=== PATIENT | female | born 1940 | race Two or more races ===

== ENCOUNTER 2018-10-27 09:14 | Day surgery (SDC) | payer BC ==
[~2018-10-27 09:14] MED LIST: CEFAZOLIN 2 GM/50 ML (PMX) 50 ML IVPB
[2018-10-27 10:12] LABS: ADD MAN DIFF? NO
[2018-10-27 10:16] LABS: BASOPHILS % 0.2 % (0.0-2.0); EOSINOPHILS # 0.1 10^3/ul (0.0-0.5); EOSINOPHILS % 1.2 % (0.0-7.0); HEMATOCRIT 39.9 % (37.0-47.0); HEMOGLOBIN 12.8 g/dl (12.0-16.0); LYMPHOCYTES # 1.9 10^3/ul (0.8-2.9); LYMPHOCYTES % 29.4 % (15.0-51.0); MEAN CORPUSCULAR HEMOGLOBIN 28.4 pg (29.0-33.0); MEAN CORPUSCULAR HGB CONC 32.1 g/dl (32.0-37.0); MEAN CORPUSCULAR VOLUME 88.5 fl (82.0-101.0); MEAN PLATELET VOLUME 12.5 fl (7.4-10.4); MONOCYTE # 0.5 10^3/ul (0.3-0.9); MONOCYTES % 8.3 % (0.0-11.0); NEUTROPHILS % 60.7 % (39.0-77.0); PLATELET COUNT 180 10^3/UL (140-415); RED BLOOD COUNT 4.51 10^6/ul (4.20-5.40); RED CELL DISTRIBUTION WIDTH 12.5 % (11.5-14.5)
[2018-10-27 10:16] LABS: WHITE BLOOD COUNT 6.5 10^3/ul (4.8-10.8)
[2018-10-27] MEDS: SOD CHLORIDE 0.9% 1,000 ML IV (10:22)
[2018-10-27 10:37] LABS: INR 0.89; PARTIAL THROMBOPLASTIN TIME 25.7 Sec (23.0-35.0); PROTIME 12.2 Sec (11.9-14.9)
[2018-10-27 10:46] LABS: ALANINE AMINOTRANSFERASE 14 IU/L (13-69); ALBUMIN 4.4 g/dl (3.3-4.9); ALBUMIN/GLOBULIN RATIO 1.29; ALKALINE PHOSPHATASE 84 IU/L (42-121); ANION GAP 11 (5-13); ASPARTATE AMINO TRANSFERASE 25 IU/L (15-46); BILIRUBIN,INDIRECT 0.6 mg/dl (0-1.1); BILIRUBIN,TOTAL 0.6 mg/dl (0.2-1.3); CALCIUM 9.3 mg/dl (8.4-10.2); CARBON DIOXIDE 23 mmol/L (21-31); CHLORIDE 107 mmol/L (97-110); GLUCOSE 96 mg/dl (70-220); POTASSIUM 4.9 mmol/L (3.5-5.1); SODIUM 141 mmol/L (135-144); TOTAL PROTEIN 7.8 g/dl (6.1-8.1)
[2018-10-27 10:47] LABS: BLOOD UREA NITROGEN 31 mg/dl (7-20); CREATININE 1.17 mg/dl (0.44-1.00)
[2018-10-27] MEDS ORDERED: PROPOFOL 40 ML (12:06)
[2018-10-27] MEDS ORDERED: FAMOTIDINE 20 MG INJ (12:06)
[2018-10-27] MEDS ORDERED: LIDOCAINE 2% (SDV) 5 ML INJ (12:07)
[2018-10-27] MEDS ORDERED: FENTAnyl 50 MCG/ML VIAL (12:07)
[2018-10-27] MEDS ORDERED: CEFAZOLIN 1 GM INJ (12:07)
[2018-10-27] MEDS ORDERED: ONDANSETRON 4 MG INJ (12:07)
[2018-10-27] MEDS ORDERED: PHENYLephrine (100 MCG/ML) 10ML SYG (12:57)
[2018-10-27] MEDS ORDERED: EPHEDrine 25 MG/5 ML SYG (12:57)
[2018-10-27] MEDS: BUPIVACAINE 0.25% (MPF) 30 ML INJ (13:22)
[2018-10-27] MEDS: HYDROCODONE/APAP (5/325) TAB PO (15:01)
== END 2018-10-27 15:29 | disposition home or self-care (01) ==
LOC: SDS 09:14
DX: D17.1 Benign lipomatous neoplasm of skin and subcutaneous tissue of trunk (principal); I10 Essential (primary) hypertension
CPT/HCPCS: 14301; 80053; 85025; 85610; 85730; 88307